=== PATIENT | female | born 1970 | race Caucasian/White ===

== ENCOUNTER 2016-08-29 10:53 | Emergency (ER) | payer MEDICAID ==
[~2016-08-29] VITALS: Ht 167.6 cm; Wt 68.0 kg
[~2016-08-29 10:53] MED LIST: AMOXICILLIN AND1 TA1 PO; AMOXICILLIN500 M2 PO; LORTAB 5/500 501 TAB PO; NAPROSYN 500MG500 MG PO; SKELAXIN 800MG800 MG PO; ULTRAM 50 MG TA50 MG PO
--- NOTE | 2016-08-29 11:12 | Emergency Room Report ---
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 N Clinical Suspician of Infection? N Mental Status: 1 - Regular (Normal Baseline) Sepsis Risk:Possible Sepsis Risk Have you (or family members/close friends) recently traveled outside the [place]? N If Yes, where/when: Have you had exposure to infectious disease within the past month? N TB? Other? Specify: Source patient, RN notes reviewed, family, old records Exam Limitations no limitations Comment atraumatic lt sided back pain and upper abd pain over the last few days with no fever or rash and no vomiting Cardiac Chest Pain Chest pain indicative of cardiac No Timing/Duration this evening Severity moderate ALLERGIES Coded Allergies: MDX - No Known Allergies - Nka (NO KNOWN ALLERGIES - NKA) (Mild, 08/30/13) Home Medications Active Scripts AMOXICILLIN/POTASSIUM CLAV (Amox Tr-K Clv 500-125 MG Tab) 1 TAB PO TID #30 TAB Prov: 08/30/13 Acetaminophen W/ Hydrocodone (Lortab 5/500) 1 TAB PO Q6HP #10 TAB Prov: 09/23/12 Amoxicillin 500 MG PO TID 30 Days Prov: 09/23/12 History Medical History General Angina: No [place]: No Hypertension? No Hyperlipidemia? No COPD? No Asthma? Yes CVA? No Seizures? No Diabetes? No GB Disease: No MRSA? No TB? No Cancer? 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 Respiratory denies cough, denies shortness of breath, denies wheezing Cardiovascular denies chest pain, denies syncope Gastrointestinal see HPI, abdominal pain, denies vomiting Genitourinary denies: dysuria, frequency, hesitancy, hematuria. Musculoskeletal see HPI, back pain, denies joint pain, denies neck pain Skin denies rash Psychiatric/Neurological denies headache, denies seizure Physical Exam Vital Signs Vital Signs Date Time Temp Pulse Resp B/P Pulse O2 O2 Flow FiO2 Ox Delivery Rate 08/29 1403 98.4 84 20 144/74 98 08/29 1320 98.4 89 20 140/95 98 08/29 1236 110 20 98 08/29 1059 98.1 110 20 149/86 98 - WBC >12,000 or <4,000 or 10% bands? 2 or more SIRS Criteria Met? B/P:149/86 MAP:107 Creatinine >2.0? UA output<0.5ml/kg/hr for 2 hrs? Platelet count >100,000? Lactate >2.0mmol/1? INR >1.2 or PTT > than 60 sec? Evidence of Organ Dysfunction? Provider documented clinical suspician of infection? N Sepsis Criteria Count: 2 Sepsis Risk: Possible Sepsis Risk General Appearance no apparent distress Eye Exam - bilateral eye PERRL, bilateral eye EOMI Ear, Nose, Throat normal ENT inspection Neck supple Respiratory Status No: respiratory distress. Lung Sounds bilateral: lungs clear. 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 No Results/Orders Laboratory Tests 08/29/16 1120: Sodium 136, Potassium 4.1, Chloride 101, Carbon Dioxide 20 L, BUN 13, Creatinine 0.7, Estimated Creat Clear 108, Estimated GFR (MDRD) 90, Glucose 127 H, Calcium 8.6, Total Bilirubin 0.6, AST 22, ALT 25, Alkaline Phosphatase 112, Troponin I < 0.02, Total Protein 8.1, Albumin 3.8, Globulin 4.3 H, Albumin/ Globulin Ratio 0.9 L, Amylase 80, Lipase 129, WBC 7.4, RBC 4.88, Hgb 15.8, Hct 43.9, MCV 90.0, RDW 12.3, Plt Count 235, MPV 5.5 L, Gran % 49.6, Gran # 3.7, Lymphocytes % 44.7, Monocytes % 4.5, Eosinophils % 0.8, Basophils % 0.4, Lymphocytes # 3.3, Monocytes # 0.3, Eosinophils # 0.1, Basophils # 0.0, PUBS MCHC 36.1 H, MCH 32.5 H 08/29/16 1055: Urine Color YELLOW, Urine Appearance CLEAR, Urine pH 6.0, Ur Specific B[place]y 1.025, Urine Protein NEGATIVE, Urine Ketones NEGATIVE, Urine Blood NEGATIVE, Urine Nitrate NEGATIVE, Urine Bilirubin NEGATIVE, Urine Urobilinogen 1.0, Ur Leukocyte Esterase NEGATIVE, Urine RBC OCC, Urine WBC OCC, Ur Squamous Epith Cells 3-5, Urine Bacteria TRACE, Urine Glucose NEGATIVE Current Medication Orders Sig/Kinza Start time Last Medication Dose Route Stop Time Status Admin Sodium Chloride 10 ML PRN PRN 08/29 1115 AC IV 08/30 1112 Orders Procedure Date/time Status DIET-NOTHING BY MOUTH 08/[address] SCAN REQ 08/29 1113 Complete IV SALINE LOCK 08/29 1113 Active URINALYSIS/COMPLETE 08/29 1113 Complete TROPONIN I 08/29 1113 Complete LIPASE 08/29 1113 Complete COMPLETE METABOLIC PANEL 08/29 1113 Complete CBC WITH AUTO DIFF 08/29 1113 Complete AMYLASE 08/29 1113 Complete XRAY/CT/US XRAY/CT/US CT abdomen, pelvis CT interpretation by discussed w/radiologist Time results known: 1432 CT Results abnormal Departure Departure Time of Disposition 1427 Disposition DC Home or Self Care(routine) Clinical Impression Primary Impression: Abdominal pain Qualifiers: Abdominal location: epigastric Qualified Code: R10.13 - Epigastric pain Secondary Impressions: Lumbar radicular pain Condition STABLE Patient Instructions DI for Low Back Pain Additional Instructions use meds and see pcp for follow up Discharge Counseling Counseled pt/family regarding diagnosis, test results, medications/RX, follow up needs Prescriptions Current Visit Scripts Prednisone (Prednisone 20MG) 20 MG PO BID #10 TAB HYDROCODONE/ACETAMINOPHEN ([place] 5-325 Tablet) 1 TAB PO Q6HP PRN pain #10 TAB ED Critical Care Critical Care No at 1438
[2016-08-29 11:25] LABS: HEMOGLOBIN 15.8 g/dL (12.2-16.2); LYMPH # 3.3 K/mm3 (0.7-4.5); LYMPH % 44.7 % (10-50.0)
[2016-08-29 11:39] LABS: BUN 13 mg/dL (7-18)
[2016-08-29 12:05] LABS: GFR (ESTIMATED) 90 ML/MIN (59-)
[2016-08-29 12:36] LABS: URINE BILIRUBIN - DIPSTICK NEGATIVE (NEG); URINE BLOOD NEGATIVE (NEG)
--- NOTE | 2016-08-29 14:17 | RADIOLOGY REPORT PS360 ---
CT ABD PELVIS W/O CONTRAST COMPARISON: None HISTORY: Left-sided abdominal pain for 3 days TECHNIQUE: Multiple axial scans obtained from hemidiaphragms to the pelvic floor and were performed without IV or oral contrast. Sagittal coronal reformatted images were evaluated as well. FINDINGS: Scans of the lower chest show minimal scarring or atelectasis in the right middle lobe. There is no pleural fluid. Cardiac size is normal. The liver spleen stomach pancreas and gallbladder appear grossly normal. The right adrenal gland is normal. There is a small cystic lesion left adrenal gland approximately 9 mm in diameter. The kidneys are normal in size and there are no calculi and is no obstructive uropathy of either kidney. Small bowel appears normal. The appendix is normal. There is moderate scattered stool in the ascending and transverse colon. There is a curious calcification sitting just anterior to the left iliopsoas muscle, possibly representing a calcified node . The uterus and adnexa are unremarkable. Urinary bladder is decompressed. There is no free fluid in the pelvis. There is straightening of the normal curvature of the lumbar spine likely representing muscle spasm. There is mild degenerative spurring at the L2-3 through the L5-S1 levels IMPRESSION: Findings as described, no acute intra-abdominal or pelvic pathology identified, somewhat curious calcification left lower quadrant along with mild degenerative changes of the lumbar spine.
[2016-08-29] MEDS ORDERED: NORCO 325 MG-51 TAB PO (14:33)
[2016-08-29] MEDS ORDERED: PREDNISONE 20MG20 MG PO (14:33)
[2016-08-29 14:50] VITALS: BP 150/99
== END 2016-08-29 14:51 | disposition home or self-care (01) ==
LOC: ER 10:53
PROVIDERS: Emergency Medicine
DX: R10.13 Epigastric pain (principal); R10.32 Left lower quadrant pain; Z72.0 Tobacco use